=== PATIENT | female | born 1980 ===

== ENCOUNTER 2022-10-25 11:30 | Inpatient (IN) | payer OTHER ==
[~2022-10-25] VITALS: Ht 160 cm; Wt 88.9 kg
[2022-10-25] MEDS ORDERED: AYGESTIN5 MG PO (14:34)
== END 2022-10-28 12:03 | disposition home or self-care (01) | DRG 743 ==
LOC: O/R 10-27 05:53 → SURG 10-27 11:30 → OB/GYN 10-27 15:52 → SURG 10-27 16:30 → OB/GYN 10-28 12:03
PROVIDERS: Surgery; ADMIT Obstetrics & Gynecology Gynecologic Oncology; ATTEND Obstetrics & Gynecology Gynecologic Oncology
PROC: 0UT24ZZ Resection of Bilateral Ovaries, Percutaneous Endoscopic Approach (ICD-10-PCS; 2022-10-27)
PROC: 07BC4ZZ Excision of Pelvis Lymphatic, Percutaneous Endoscopic Approach (ICD-10-PCS; 2022-10-27)
PROC: 0DNW4ZZ Release Peritoneum, Percutaneous Endoscopic Approach (ICD-10-PCS; 2022-10-27)
PROC: 0DNP4ZZ Release Rectum, Percutaneous Endoscopic Approach (ICD-10-PCS; 2022-10-27)
PROC: 0DNN4ZZ Release Sigmoid Colon, Percutaneous Endoscopic Approach (ICD-10-PCS; 2022-10-27)
PROC: 0DTJ4ZZ Resection of Appendix, Percutaneous Endoscopic Approach (ICD-10-PCS; 2022-10-27)
PROC: 0DJD8ZZ Inspection of Lower Intestinal Tract, Via Natural or Artificial Opening Endoscopic (ICD-10-PCS; 2022-10-27)
PROC: 0UT94ZZ Resection of Uterus, Percutaneous Endoscopic Approach (ICD-10-PCS; principal; 2022-10-27 16:30)
PROC: 0UT74ZZ Resection of Bilateral Fallopian Tubes, Percutaneous Endoscopic Approach (ICD-10-PCS; 2022-10-27 16:30)
DX: N80.392 Deep endometriosis of the pelvic peritoneum, other specified sites (principal); N80.50 Endometriosis of intestine, unspecified; N73.6 Female pelvic peritoneal adhesions (postinfective); D25.2 Subserosal leiomyoma of uterus; N80.123 Deep endometriosis of bilateral ovaries; N80.8 Other endometriosis; Z20.822 Contact with and (suspected) exposure to COVID-19